=== PATIENT | male | born 1965 | race Caucasian/White ===

== ENCOUNTER 2020-04-19 14:49 | Emergency (ER) | payer MEDICARE ==
[~2020-04-19] VITALS: Ht 165.1 cm; Wt 73.3 kg
[~2020-04-19 14:49] MED LIST: ATOR-2 PO; CLON1TAB PO; QUET400T4 PO; QUET400T7 PO; SILD100T PO
--- NOTE | 2020-04-19 15:12 | NUR ---
PATIENT WALKED BACK FROM TRIAGE WITH CHIEF C/O COVID POSITIVE CONTACT. 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 PATIENT DENIES COUGH, FEVER, AND CONGESTION. NO SIGNS OF ACUTE DISTRESS, CONNECTED TO VITALS MACHINE. CALL LIGHT WITHIN REACH.
[2020-04-19] MEDS ORDERED: LAMO300T2 PO (15:18)
--- NOTE | 2020-04-19 15:22 | NUR ---
ER PROVIDER AT BEDSIDE FOR EVALUATION.
[2020-04-19 15:39] VITALS: BP 129/90
--- NOTE | 2020-04-19 15:45 | NUR ---
Patient given discharge instructions and they have confirmed that they understand the instructions, questions answered. All patient belongings gathered by patient and taken. Patient ambulatory with steady gait out of ED.
== END 2020-04-19 15:47 | disposition home or self-care (01) ==
LOC: ED 15:08
DX: Z11.59 Encounter for screening for other viral diseases (principal); Z00.00 Encounter for general adult medical examination without abnormal findings
CPT/HCPCS: 36415; 87635; 99283

== ENCOUNTER 2020-06-25 11:02 | Emergency (ER) | payer MEDICARE ==
[~2020-06-25] VITALS: Ht 167.6 cm; Wt 68.2 kg
[~2020-06-25 11:02] MED LIST changes: +LAMO300T2 PO
[2020-06-25] MEDS ORDERED: LORazepam 1MG TABLET ONE ×2 (11:10→11:12)
--- NOTE | 2020-06-25 11:22 | NUR ---
BIB [facility], PT WITH C/O NUMBNESS ON L SIDE OF FACE FOR PAST DAY AND A HALF. NO FOCAL NEURO DEFICITS NOTED. BS 113 FOR EMS. PT DRINKS 1 PINT PER DAY HAS HX DETOX C HALLUCINATIONS. PT ARRIVES TEARFUL AND TREMULOUS. PT TO ALL MONITORS, ERP IN RM TO EVAL PT, ORDERS RECEIVED FOR ATIVAN. PT MEDICATED PER MAR
[2020-06-25] MEDS ORDERED: PLEASE ENTER HEIGHT AND WEIGHT MC SCH (11:30)
[2020-06-25] MEDS ORDERED: LORazepam 1MG TABLET PO ONE (11:30)
[2020-06-25 11:38] LABS: ALANINE AMINOTRANSFERASE 33 U/L (12-78); ALBUMIN 4.3 g/dL (3.4-5.0); ANION GAP 8 mmol/L (5-15); CALCIUM 8.7 mg/dL (8.5-10.1); CHLORIDE 108 mmol/L (98-107); CREATININE 1.01 mg/dL (0.7-1.3)
[2020-06-25 11:39] LABS: BASOPHILS % (AUTO) 2 % (0-1); EOSINOPHILS % (AUTO) 0 % (1-7); LYMPHOCYTES % (AUTO) 14 % (22-44); MEAN CORPUSCULAR HEMOGLOBIN 34.7 pg (27.5-34.5); MEAN CORPUSCULAR HGB CONC 34.7 g/dL (33.2-36.2); MEAN PLATELET VOLUME 6.8 fL (7.4-10.4); MONOCYTES % (AUTO) 9 % (2-9); NEUTROPHILS % (AUTO) 75 % (42-75); PLATELET COUNT 216 x10^3/uL (130-400); RED BLOOD COUNT 3.38 x10^6/uL (4.38-5.82); RED CELL DISTRIBUTION WIDTH 14.2 % (9.4-14.8)
[2020-06-25 11:40] LABS: ALKALINE PHOSPHATASE 105 U/L (45-117); BILIRUBIN,TOTAL 0.6 mg/dL (0.2-1.0); TOTAL PROTEIN 7.1 g/dL (6.4-8.2)
[2020-06-25 11:42] LABS: MD NO
--- NOTE | 2020-06-25 12:11 | NUR ---
PT BACK FROM CT, REQUESTING "BANANA BAG" DISCUSSED WITH ERMD, NO NEW ORDERS AT THIS TIME, VSS
[2020-06-25 13:49] VITALS: BP 141/94
== END 2020-06-25 14:45 | disposition home or self-care (01) ==
LOC: ED 11:56
DX: F10.220 Alcohol dependence with intoxication, uncomplicated (principal); R20.2 Paresthesia of skin; R51.9 Headache, unspecified; Y90.0 Blood alcohol level of less than 20 mg/100 ml
CPT/HCPCS: 36415; 70450; 70486; 80053; 85025; 99285

== ENCOUNTER 2021-03-13 11:24 | Emergency (ER) | payer MEDICARE ==
[~2021-03-13] VITALS: Ht 165.1 cm; Wt 63.0 kg
[2021-03-13] MEDS ORDERED: SODIUM CHLORIDE FLUSH 10ML SYR IVF ONE (12:00)
[2021-03-13] MEDS ORDERED: THIAMINE 100MG TABLET PO ONE (12:00)
[2021-03-13] MEDS ORDERED: SODIUM CHLORIDE 0.9% 1,000ML IVBOLUS ONE (12:00)
[2021-03-13] MEDS ORDERED: LORazepam 2 MG/ML, 1ML IVPush PRN (12:00)
[2021-03-13] MEDS ORDERED: THIAMINE 100MG TABLET ONE (12:17)
[2021-03-13] MEDS ORDERED: LORazepam 2 MG/ML, 1ML ONE (12:17)
[2021-03-13] MEDS ORDERED: DIPH,PERTUSS(ACELL),TET VAC/PF 0.5 ML IM-VACC ONE ×2 (12:30→15:28)
[2021-03-13 12:34] LABS: BASOPHILS % (AUTO) 1 % (0-1); EOSINOPHILS % (AUTO) 2 % (1-7); LYMPHOCYTES % (AUTO) 18 % (22-44); MEAN CORPUSCULAR HEMOGLOBIN 34.4 pg (27.5-34.5); MEAN CORPUSCULAR HGB CONC 34.7 g/dL (33.2-36.2); MEAN PLATELET VOLUME 7.5 fL (7.4-10.4); MONOCYTES % (AUTO) 10 % (2-9); NEUTROPHILS % (AUTO) 69 % (42-75); PLATELET COUNT 212 x10^3/uL (130-400); RED BLOOD COUNT 3.89 x10^6/uL (4.38-5.82); RED CELL DISTRIBUTION WIDTH 13.2 % (9.4-14.8)
[2021-03-13 12:47] LABS: CHLORIDE 94 mmol/L (98-107)
--- NOTE | 2021-03-13 12:49 | NUR ---
XR AT BS
[2021-03-13 12:55] LABS: ALANINE AMINOTRANSFERASE 121 U/L (12-78); ALKALINE PHOSPHATASE 232 U/L (45-117); ANION GAP 10 mmol/L (5-15); BILIRUBIN,TOTAL 0.9 mg/dL (0.2-1.0); CALCIUM 8.4 mg/dL (8.5-10.1); CREATININE 0.86 mg/dL (0.7-1.3); TOTAL PROTEIN 6.6 g/dL (6.4-8.2); TROPONIN I < 0.015 ng/mL (0.000-0.045)
--- NOTE | 2021-03-13 13:27 | NUR ---
PT IN RADIOLOGY
--- NOTE | 2021-03-13 14:14 | NUR ---
BS U/S COMPLETED. COLLAR STILL IN PLACE; PT AWARE OF NECK FX.
--- NOTE | 2021-03-13 14:16 | NUR ---
PT REQUESTING PAIN MED DUE TO CHRONIC NECK PAIN AND C-COLLAR. WILL NOTIFY ERP.
[2021-03-13] MEDS ORDERED: morphine SULFATE 10 MG/ML, 1ML IVPush ONE (14:30)
[2021-03-13] MEDS ORDERED: MORPHINE SULFATE 4 MG/ML, 1ML ONE (15:28)
--- NOTE | 2021-03-13 15:41 | NUR ---
MORPHINE AND TDAP GIVEN PER MAR. AWAITING ORDERED C-COLLARS. PT ENDORSED TO BREAK RN.
--- NOTE | 2021-03-13 16:32 | NUR ---
STILL AWAITING ORDERED C-COLLAR; CALLED [facility] FOR STATUS; PER TECH, ORDER HASN'T BEEN RECEIVED. DR GARCIA PLACED ORDER AT 1433. CALLED OR RE: C-COLLAR; WAS INSTRUCTED TO CALL [facility]. WILL CONSULT CT MANAGER.
--- NOTE | 2021-03-13 16:38 | NUR ---
VALERI C-COLLAR ORDER NOW IN CHART; [facility] NOTIFIED.
--- NOTE | 2021-03-13 17:01 | NUR ---
ASPEN COLLAR OBTAINED FROM [facility]. COLLAR APPLIED TO PT WITH RESEARCH STATISTICIAN HOLDING C-SPINE STABILIZATION. COLLAR APPLICATION CHECKED BY DR GARCIA. COLLAR INSTRUCTIONS DISCUSSED W/ PT AND ERP; PT VERBALIZED UNDERSTANDING.
[2021-03-13 17:02] VITALS: BP 128/87
[2021-03-13] MEDS ORDERED: HYDROcodone/APAP 5/325 TABLET ONE (17:28)
--- NOTE | 2021-03-13 17:34 | NUR ---
RT LEG LAC CLEANSED W/ SOAP & WATER; BANDAID APPLIED. NORCO GIVEN PER AUG. IV DC'D W/ TIP INTACT. WRITTEN DC INSTRUCTIONS DISCUSSED W/ PT; QUESTIONS ANSWERED; UNDERSTANDING VERBALIZED.
[2021-03-13] MEDS ORDERED: HYDROcodone/APAP 5/325 TABLET PO ONE (18:30)
== END 2021-03-13 18:26 | disposition home or self-care (01) ==
LOC: ED 17:45
DX: S12.200A Unspecified displaced fracture of third cervical vertebra, initial encounter for closed fracture (principal); S12.300A Unspecified displaced fracture of fourth cervical vertebra, initial encounter for closed fracture; S09.90XA Unspecified injury of head, initial encounter; R00.0 Tachycardia, unspecified; F10.239 Alcohol dependence with withdrawal, unspecified; Y93.89 Activity, other specified; Y92.89 Other specified places as the place of occurrence of the external cause; Y99.8 Other external cause status; Y90.0 Blood alcohol level of less than 20 mg/100 ml
CPT/HCPCS: 36415; 70450; 71045; 72125; 76700; 80053; 80320; 83690; 84484; 85025; 90471; 90715; 93005; 96361; 96374; 96375; 99285; J2060; J2270; J7030; G0480